=== PATIENT | female | born 1985 | race Two or more races ===

== ENCOUNTER 2021-01-18 15:35 | Emergency (ER) | payer OTHER ==
[2021-01-18 16:13] LABS: BASOPHILS # (AUTO) 0.1 10^3/uL (0.0-0.1); BASOPHILS % (AUTO) 0.5 %; EOSINOPHILS # (AUTO) 0.1 10^3/uL (0.0-0.7); EOSINOPHILS % (AUTO) 0.5 %; HCT - HEMATOCRIT 41.5 % (37.0-47.0); HGB - HEMOGLOBIN 13.5 g/dL (12.0-16.0); LYMPHOCYTES # (AUTO) 2.4 10^3/uL (1.5-3.5); LYMPHOCYTES % (AUTO) 20.9 %; MEAN CORPUSCULAR HEMOGLOBIN 29.2 pg (27.0-31.0); MEAN CORPUSCULAR HGB CONC 32.5 g/dL (32.0-36.0); MEAN CORPUSCULAR VOLUME 89.6 fL (81.0-99.0); MEAN PLATELET VOLUME 9.4 fL (7.9-10.8); MONOCYTES # (AUTO) 0.6 10^3/uL (0.0-1.0); MONOCYTES % (AUTO) 4.9 %; NEUTROPHILS # (AUTO) 8.4 10^3/uL (1.5-6.6); NEUTROPHILS % (AUTO) 72.7 %; PLT - PLATELET COUNT 441 10^3/uL (130-450); RED BLOOD COUNT 4.63 10^6/uL (4.20-5.40); RED CELL DISTRIBUTION WIDTH 12.8 % (12.0-15.0); WHITE BLOOD COUNT 11.6 x10^3/uL (4.8-10.8)
[2021-01-18 16:22] LABS: ALBUMIN 4.4 g/dL (3.2-5.5); ALBUMIN/GLOBULIN RATIO 1.1 (1.0-2.2); BILIRUBIN,TOTAL 0.9 mg/dL (0.2-1.0); CALCIUM 9.1 mg/dL (8.5-10.3); CREATININE 0.6 mg/dL (0.4-1.0); POTASSIUM 3.6 mmol/L (3.5-5.0); TOTAL PROTEIN 8.3 g/dL (6.7-8.2)
[2021-01-18 16:52] LABS: HCG,QUALITATIVE BLOOD NEGATIVE
[2021-01-18 18:45] LABS: BILIRUBIN,URINE NEGATIVE (NEGATIVE); GLUCOSE, URINE (UA) NEGATIVE (NEGATIVE); KETONES,URINE (UA) NEGATIVE (NEGATIVE); LEUKOCYTE ESTERASE, URINE NEGATIVE (NEGATIVE); NITRITE,URINE NEGATIVE (NEGATIVE); OCCULT BLOOD,URINE SMALL (NEGATIVE); PH,URINE 5.5 PH (5.0-7.5); PROTEIN,URINE NEGATIVE (NEGATIVE); UROBILINOGEN,URINE 0.2 (NORMAL) E.U./dL (NORMAL)
[2021-01-18 18:46] LABS: CLARITY,URINE CLEAR (CLEAR); HCG UR QUAL NEGATIVE
[2021-01-18 18:49] LABS: BACTERIA,URINE Rare /HPF (None Seen); MUCUS,URINE Few Strands; RBC,URINE 0-5 /HPF (0-5); SQUAMOUS EPITHELIAL CELL,UR FEW Squamous (<= Few); WBC,URINE 0-3 /HPF (0-5)
--- NOTE | 2021-01-18 19:11 | ED Physician Documentation ---
History of Present Illness - Stated complaint Stated Complaint: PELVIC PX - Chief complaint Chief Complaint: Abd Pain - Additonal information Additional information: 35-year-old female Presents the emergency department for evaluation of lower abdominal/pelvic pain. Has been ongoing for about 2 weeks. Particularly worse when laying flat in bed. She feels her radiation down her right leg as well as up her back. She denies possibility of . She is 4 days late for her menses but took multiple test at home that was negative. She is negative here in the ER. 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 Denies dysuria urgency or frequency. No fevers or diarrhea. 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 We discussed possible etiologies of lower abdominal pain I did offer CT imaging however patient would prefer to avoid radiation as well as contrast given her history of thyroid disease and is requesting an ultrasound instead at this time. Review of Systems Constitutional: denies: Fever, Chills Eyes: reports: Loss of vision Ears: reports: Reviewed and negative Throat: reports: Reviewed and negative Cardiac: reports: Reviewed and negative Respiratory: reports: Reviewed and negative GI: reports: Abdominal Pain. denies: Nausea, Vomiting, Diarrhea, Hematemesis : denies: Dysuria, Frequency, Hesitancy Skin: denies: Rash, Lesions PD PAST MEDICAL HISTORY - Past Medical History Past Medical History: Yes Endocrine/Autoimmune: HyPOthyroidism SCALER: Ovarian cancer - Past Surgical History Past Surgical History: Yes /SCALER: Oophrectomy - Present Medications Home Medications: Ambulatory Orders Medication Instructions Recorded Confirmed Levothyroxine Sodium [Synthroid] 75 mcg PO DAILY 01/18/21 01/18/21 - Allergies Allergies/Adverse Reactions: Allergies Allergy/AdvReac Type Severity Reaction Status Date / Time No Known Drug Allergies Allergy Verified 01/18/21 15:48 - Social History Does the pt smoke?: No Smoking Status: Never smoker Does the pt drink ETOH?: No Does the pt have substance abuse?: No - Immunizations Immunizations are current?: Yes PD ED PE NORMAL - General General: Alert and oriented X 3, No acute distress - HEENT HEENT: Atraumatic, Ears normal - Neck Neck: Supple, no meningeal sign, No bony TTP, No adenopathy - Cardiac Cardiac: RRR, No murmur - Respiratory Respiratory: No respiratory distress, Clear bilaterally - Abdomen Abdomen: Normal bowel sounds, Soft, Non tender (Focal tenderness in the very low right lower quadrant of the abdomen. Negative McBurney's. Negative Barragan's. Mild tenderness noted on the left side of the abdomen without guarding or rebound.) - Female Female : Deferred, Pt declined - Back Back: No CVA TTP - Derm Derm: Normal color, Warm and dry, No rash - Extremities Extremities: No deformity, No tenderness to palpate Results - Vitals Vitals: Vital Signs - 24 hr 01/18/21 01/18/21 15:48 18:52 Temperature 36.8 C 36.6 C Heart Rate 98 99 Respiratory 18 16 Rate Blood Pressure 145/83 H 143/90 H O2 Saturation 100 100 Oxygen O2 Source Room air - Labs Labs: Laboratory Tests 01/18/21 01/18/21 01/18/21 16:00 16:04 16:04 WBC 11.6 H RBC 4.63 Hgb 13.5 Hct 41.5 MCV 89.6 MCH 29.2 MCHC 32.5 RDW 12.8 Plt Count 441 MPV 9.4 Neut # (Auto) 8.4 H Lymph # (Auto) 2.4 [place] # (Auto) 0.6 Eos # (Auto) 0.1 Baso # (Auto) 0.1 Absolute Nucleated RBC 0.00 Nucleated RBC % 0.0 Sodium 138 Potassium 3.6 Chloride 103 Carbon Dioxide 25 Anion Gap 10.0 BUN 10 Creatinine 0.6 Estimated GFR (MDRD) 114 Glucose 97 Calcium 9.1 Total Bilirubin 0.9 AST 16 ALT 17 Alkaline Phosphatase 46 Total Protein 8.3 H Albumin 4.4 Globulin 3.9 Albumin/Globulin Ratio 1.1 Lipase 25 TSH Thyroxine (T4) Serum HCG, Qual Urine Color YELLOW Urine Clarity CLEAR Urine pH 5.5 Ur Specific Recluse 1.025 Urine Protein NEGATIVE Urine Glucose (UA) NEGATIVE Urine Ketones NEGATIVE Urine Occult Blood SMALL H Urine Nitrite NEGATIVE Urine Bilirubin NEGATIVE Urine Urobilinogen 0.2 (NORMAL) Ur Leukocyte Esterase NEGATIVE Urine RBC 0-5 Urine WBC 0-3 Ur Squamous Epith Cells FEW Squamous Urine Bacteria Rare Urine Mucus Few Strands Ur Microscopic Review INDICATED Urine Culture Comments NOT INDICATED Urine HCG, Qual NEGATIVE 01/18/21 01/18/21 16:04 16:04 WBC RBC Hgb Hct MCV MCH MCHC RDW Plt Count MPV Neut # (Auto) Lymph # (Auto) [place] # (Auto) Eos # (Auto) Baso # (Auto) Absolute Nucleated RBC Nucleated RBC % Sodium Potassium Chloride Carbon Dioxide Anion Gap BUN Creatinine Estimated GFR (MDRD) Glucose Calcium Total Bilirubin AST ALT Alkaline Phosphatase Total Protein Albumin Globulin Albumin/Globulin Ratio Lipase TSH 3.89 Thyroxine (T4) 11.22 Serum HCG, Qual NEGATIVE Urine Color Urine Clarity Urine pH Ur Specific Recluse Urine Protein Urine Glucose (UA) Urine Ketones Urine Occult Blood Urine Nitrite Urine Bilirubin Urine Urobilinogen Ur Leukocyte Esterase Urine RBC Urine WBC Ur Squamous Epith Cells Urine Bacteria Urine Mucus Ur Microscopic Review Urine Culture Comments Urine HCG, Qual - Rads (name of study) pelvic US Radiology: See rad report, Other (Per wood technologist: Right ovarian hemorrhagic cyst measuring approximately 2 cm. Positive ovarian flow. No torsion. Mild to moderate free fluid.) PD MEDICAL DECISION MAKING - ED course Complexity details: reviewed results, re-evaluated patient, d/w patient ED course: 35-year-old female presents emergency department for evaluation of 2 to 3 weeks of lower pelvic abdominal pain. She has a history of a previous left oophorectomy secondary to a dermoid cyst. She also reports a history of Terry's disease on levothyroxine. With this abdominal pain she has been feeling nauseated and is late for her menstrual cycle so she was concerned that she was . Multiple home test at home are negative. Today urine as well as serum is negative. We did discuss further etiologies for the lower pelvic pain which include but are not limited to UVJ obstruction, acute appendicitis, bowel obstruction. I did offer patient CT imaging but she declined it as she is concerned that contrast media may affect her thyroid gland. Therefore she is requesting an ultrasound only at this time. Ultrasound does show an approximate 2 cm right ovarian hemorrhagic cyst. There is moderate amount of free fluid but the ovary is not torsed. Findings were discussed with patient given otherwise reassuring labs I have recommended ibuprofen warm compress and follow-up with PCP and OB. She did request TSH screening today and her TSH and T4 are normal. Emergent return precautions were discussed Departure - Departure Disposition: 01 Home, Self Care Clinical Impression: Hemorrhagic cyst of right ovary Condition: Stable Record reviewed to determine appropriate education?: Yes Instructions: Cyst Ovarian About Comments: Amanda sharp are seen in the emergency department today for very low right-sided pelvic and abdominal pain. The ultrasound shows that you have a approximate 2 cm right hemorrhagic ovarian cyst. These are very common and can typically resolve on their own. Sometimes they can rupture which can cause a slight increase in pain. You are not . Your blood test as well as your urine test show that you are not In most instances however these do not require any specific treatment. I recommend that you take ibuprofen for discomfort. Your screening labs were all essentially normal including your thyroid panel. Please discuss this ED visit with a primary care provider. You may benefit from further referral and evaluation by an embedded software test engineer as you have previously had your left ovary removed. If at any point you find that your symptoms are worsening, you have uncontrolled vomiting, fevers or severe pain then please return immediately to the ER.
[2021-01-18 19:46] LABS: T4 (THYROXINE) 11.22 ug/dL (6.09-12.23)
[2021-01-18 19:50] LABS: THYROID STIMULATING HORMONE 3.89 uIU/mL (0.34-5.60)
--- NOTE | 2021-01-18 20:35 | Ultrasound Report ---
PROCEDURE: Pelvic w/Transvag+Doppler Ltd INDICATIONS: lower pelvic pain; ? ovarian cyst TECHNIQUE: Real-time scanning was performed of the pelvic organs, with image documentation. Additional endovagi nal scanning was necessary due to incomplete visualization of the adnexal and endometrial structures by transabdominal scanning. COMPARISON: None. FINDINGS: Uterus: Uterus is normal in size at 7.7 x 5.2 x 4.9 cm. No uterine mass. The endometrium measures 1 9 mm in combined thickness. Ovaries: Right ovary measures 3.2 x 3.2 x 2.4 cm, volume of 13 cc. Complex right ovarian cyst measur ing 2.5 x 2.1 x 1.9 cm. Blood flow is seen in the right ovary. The left ovary is surgically absent. There is mild free fluid in the pelvic cul-de-sac and left adnexa noted. IMPRESSION: 1. Complex right ovarian cyst measuring 2.5 cm. This could represent a hemorrhagic cyst. -Recommend short-term follow-up ultrasound in approximately 6 weeks. 2. Mild free fluid in the pelvis. 3. Endometrium is mildly thickened measuring 1.9 cm. Reviewed by: Kyle Ang MD on 01/18/2021 8:33 PM PDT Approved by: Kyle Ang MD on 01/18/2021 8:33 PM PDT Station ID: [id number]
[2021-01-18 20:51] VITALS: BP 140/93
== END 2021-01-18 20:51 | disposition home or self-care (01) ==
LOC: ED 15:35
DX: N83.201 Unspecified ovarian cyst, right side (principal); E03.9 Hypothyroidism, unspecified
CPT/HCPCS: 36415; 80053; 81001; 81003; 81025; 83690; 84436; 84443; 84703; 85025; 87086; 93976; 99284